=== PATIENT | male | born 1940 | race Caucasian/White ===

== ENCOUNTER 2018-03-30 11:40 | Day surgery (SDC) | payer MEDICARE, OTHER ==
[2018-03-30] VITALS (11 sets, daily range): BP systolic 101–129; BP diastolic 62–77; PULSE 62–69; TEMP 97.6
[~2018-03-30] VITALS: Ht 170.2 cm; Wt 108.0 kg
[~2018-03-30 11:40] MED LIST: ASPIRIN E.C. 8181 MG PO; COSOPT EYE DROPS5 ML OU; IMDUR 60MG60 MG/TAB PO; LIPITOR 40MG TA40 MG PO; NAPROSYN500 MG PO; NITROSTAT0.4 MG/TAB SL; OMEGA 31000 MG PO; PLAVIX 75MG TAB75 MG PO; PRESERVISION1 SGL PO; RANEXA 500MG T500 MG PO; REFRESH PLUS1 SOL OP; TENORMIN 2525 MG/TAB PO; ZESTRIL 5MG5 MG PO; ZETIA 10MG TAB10 MG PO
[2018-03-30 12:25] LABS: MEAN CELL VOLUME 93 fl (80.0-100.0); MEAN CORPUSCULAR HEMOGLOBIN 30 pg (27.0-31.0); MEAN CORPUSCULAR HGB CONC 33 g/dl (33.0-37.0); MEAN PLATELET VOLUME 9.1 fl (7.4-10.4); PLATELET COUNT 170 K/mm3 (130-400); RED BLOOD COUNT 4.95 M/mm3 (4.20-5.60); REDCELL DISTRIBUTION WIDTH-CV 14.2 % (11.5-14.5)
[2018-03-30 12:38] LABS: CALCIUM 8.6 mg/dL (8.4-10.2); CREATININE, serum 0.9 mg/dL (0.66-1.25); POTASSIUM 4.5 mmol/L (3.4-5.0)
== END 2018-03-30 20:04 | disposition home or self-care (01) ==
LOC: COL.CAR 11:40
PROVIDERS: Internal Medicine Cardiovascular Disease
DX: I25.118 Atherosclerotic heart disease of native coronary artery with other forms of angina pectoris (principal); R94.39 Abnormal result of other cardiovascular function study; I25.2 Old myocardial infarction; Z95.1 Presence of aortocoronary bypass graft; I10 Essential (primary) hypertension; E78.5 Hyperlipidemia, unspecified; Z79.02 Long term (current) use of antithrombotics/antiplatelets; Z79.82 Long term (current) use of aspirin; Z87.891 Personal history of nicotine dependence; Z88.8 Allergy status to other drugs, medicaments and biological substances; Z82.49 Family history of ischemic heart disease and other diseases of the circulatory system; Z82.3 Family history of stroke
CPT/HCPCS: C1760; C1887; C1894; J2250; J3010; Q9967

== ENCOUNTER 2022-08-17 08:36 | Day surgery (SDC) | payer MEDICARE, OTHER ==
[~2022-08-17] VITALS: Ht 170.2 cm; Wt 102.7 kg
[~2022-08-17 08:36] MED LIST changes: +AMOXICILLIN 8751 TAB PO; +COSOPT 2%-0.5%10 ML OU; +CRESTOR20 MG PO; +K-DUR 10 MEQ T10 MEQ PO; +NORCO 325 MG-51 TAB PO; +XALATAN EYE DROPS OD
[2022-08-17] MEDS ORDERED: ASPIRIN E.C. 8181 MG PO (09:28)
[2022-08-17] MEDS ORDERED: FLOMAX 0.40.4 MG/CAP PO (09:28)
[2022-08-17] MEDS ORDERED: GEMTESA75 MG PO (09:29)
[2022-08-17] MEDS ORDERED: LASIX 40MG TABL40 MG PO (09:31)
[2022-08-17] MEDS ORDERED: IMDUR 30MG30 MG/TAB PO (09:31)
[2022-08-17] MEDS ORDERED: ANTIVERT 25MG25 MG PO (09:32)
[2022-08-17 09:34] VITALS: BP 78/55; PULSE 64; TEMP 97.4
[2022-08-17 10:54] VITALS: BP 86/55; PULSE 60; TEMP 97.4
[2022-08-17 11:20] VITALS: BP 95/50; PULSE 61
== END 2022-08-17 11:25 | disposition home or self-care (01) ==
LOC: SDCO 08:36
DX: N36.8 Other specified disorders of urethra (principal)

== ENCOUNTER 2022-09-06 09:48 | Emergency (ER) | payer MEDICARE, OTHER ==
[~2022-09-06] VITALS: Ht 170.2 cm; Wt 102.6 kg
[~2022-09-06 09:48] MED LIST changes: +ANTIVERT 25MG25 MG PO; +FLOMAX 0.40.4 MG/CAP PO; +GEMTESA75 MG PO; +IMDUR 30MG30 MG/TAB PO; +LASIX 40MG TABL40 MG PO
[2022-09-06 10:04] VITALS: TEMP 97.9
[2022-09-06 10:48] LABS: COLLECTION METHOD IN
[2022-09-06 10:55] LABS: BASO # 0.1 K/mm3 (0.0-0.2); BASO % 0.6 % (0.0-2.0); EOS # 0.3 K/mm3 (0.0-0.7); EOS % 3.3 % (0.0-4.0); GRAN # 4.2 K/mm3 (1.4-6.5); GRAN % 50.3 % (42.2-75.2); HEMATOCRIT 42.5 % (42.0-52.0); HEMOGLOBIN 13.3 g/dl (13.5-18.0); LYMPH # 2.8 K/mm3 (1.2-3.4); LYMPH % 33.9 % (20.0-51.0); MEAN CELL VOLUME 90 fl (80.0-100.0); MEAN CORPUSCULAR HEMOGLOBIN 28 pg (27-31); MEAN CORPUSCULAR HGB CONC 31 g/dl (33.0-37.0); MEAN PLATELET VOLUME 9.3 fl (7.4-10.4); MONO % 11.5 % (1.7-9.3); PLATELET COUNT 219 K/mm3 (130-400); RED BLOOD COUNT 4.71 M/mm3 (4.20-5.60); REDCELL DISTRIBUTION WIDTH-CV 14.6 % (11.5-14.5)
[2022-09-06 11:09] LABS: ALBUMIN 3.2 gm/dL (3.4-4.8); BILIRUBIN,TOTAL 0.9 mg/dL (0.2-1.2); C-REACTIVE PROTEIN 0.36 mg/dL (0.00-0.50); CALCIUM 8.6 mg/dL (8.4-10.2); CREATININE, serum 1.19 mg/dL (0.72-1.25); POTASSIUM 3.9 mmol/L (3.5-4.5); TOTAL PROTEIN 6.9 gm/dL (6.2-8.1)
[2022-09-06 11:39] LABS: SQUAMOUS EPITHELIAL None Seen /hpf (0-10); URINE BACTERIA None Seen /hpf (NONE SEEN); URINE RBC >50 /hpf (0-2)
[2022-09-06 11:42] LABS: PH 8.5 (5.0-8.5); URINE APPEARANCE Turbid (CLEAR/HAZY); URINE COLOR Red (YELLOW); URINE GLUCOSE TRACE (NEGATIVE); URINE PROTEIN(semi-quant) 3+ (NEGATIVE)
[2022-09-06 11:43] LABS: URINE BLOOD 3+ (NEGATIVE); URINE KETONE 2+ (NEGATIVE); URINE NITRATE Negative (NEGATIVE); URINE UROBILINOGEN >=8.0 E.U/dL (0.2-1.0)
[2022-09-06] MEDS ORDERED: BACTRIM DS 8001 TAB PO (12:52)
[2022-09-06 13:02] VITALS: BP 102/65; PULSE 63
[2022-09-08] MEDS ORDERED: LEVAQUIN 5500 MG/TA1 PO (21:29)
[2022-09-10] MEDS ORDERED: CIPRO 500MG TA500 MG PO (09:14)
== END 2022-09-06 13:21 | disposition home or self-care (01) ==
LOC: COL.ER 09:48
PROVIDERS: Nurse Practitioner
DX: N39.0 Urinary tract infection, site not specified (principal); R53.1 Weakness
CPT/HCPCS: J0696; J7030

== ENCOUNTER 2022-09-06 19:03 | Emergency (ER) | payer MEDICARE, OTHER ==
[~2022-09-06] VITALS: Ht 170.2 cm; Wt 102.3 kg
[~2022-09-06 19:03] MED LIST changes: +BACTRIM DS 8001 TAB PO
[2022-09-06 19:08] VITALS: TEMP 97.2
[2022-09-06 22:57] VITALS: BP 110/62; PULSE 75
[2022-09-08] MEDS ORDERED: LEVAQUIN 5500 MG/TA1 PO (21:29)
[2022-09-10] MEDS ORDERED: CIPRO 500MG TA500 MG PO (09:14)
== END 2022-09-06 22:57 | disposition home or self-care (01) ==
LOC: COL.ER 19:03
DX: R33.9 Retention of urine, unspecified (principal); R31.9 Hematuria, unspecified